=== PATIENT | female | born 1965 | race Native Hawaiian/Other Pacific Islander ===

== ENCOUNTER 2017-02-18 11:47 | Emergency (ER) | payer OTHER ==
[~2017-02-18] VITALS: Ht 167.6 cm; Wt 72.1 kg
[~2017-02-18 11:47] MED LIST: ACET-689 PO; CODEINE/APAP1 TA1 PO; DOXEPIN HCL10 MG PO; ESTR1TAB13 PO; FLUT0.05 NAS; IBUP-97 PO; PROZAC10 MG PO; TIZA4TAB5 PO; TRAMADOL HCL100 M1 PO; ZANTAC300 MG PO
[2017-02-18 12:59] LABS: PLATELET COUNT 280 K/uL (152-353)
[2017-02-18 13:10] LABS: POTASSIUM 4.4 mmol/L (3.6-5.2); SODIUM 138 mmol/L (136-145)
[2017-02-18 14:00] VITALS: TEMP 98.1
[2017-02-18 17:01] VITALS: BP 128/82
== END 2017-02-18 17:00 | disposition home or self-care (01) ==
LOC: ED 11:47
DX: K29.60 Other gastritis without bleeding (principal); B96.81 Helicobacter pylori [H. pylori] as the cause of diseases classified elsewhere; R16.0 Hepatomegaly, not elsewhere classified
CPT/HCPCS: 80053; 81000; 82150; 83690; 85027; 86318; 96374; 96375; 99284; J1885; J2405; Q9963

== ENCOUNTER 2018-02-06 12:14 | Observation (INO) | payer OTHER ==
[~2018-02-06] VITALS: Ht 167.6 cm; Wt 72.8 kg
[2018-02-06 12:30] VITALS: BP 164/62; TEMP 98.1
[2018-02-06 14:00] LABS: PLATELET COUNT 289 K/uL (152-353)
[2018-02-06 14:25] LABS: PARTIAL THROMBOPLASTIN TIME 28.9 SECONDS (24.5-33.6)
[2018-02-06 14:30] VITALS: BP 148/70
[2018-02-06 16:31] VITALS: BP 134/71
[2018-02-06 17:52] VITALS: BP 140/72; TEMP 97.7; Ht 167.6 cm; Wt 72.8 kg
[2018-02-06] MEDS ORDERED: CYCL10TA35 PO ×2 (17:59)
[2018-02-06 19:41] VITALS: BP 129/63; TEMP 97.9
[2018-02-07] VITALS (10 sets, daily range): BP systolic 111–126; BP diastolic 60–78; TEMP 97.6–98.2
[2018-02-07 05:46] LABS: PLATELET COUNT 273 K/uL (152-353)
[2018-02-07 05:58] LABS: POTASSIUM 3.8 mmol/L (3.6-5.2)
[2018-02-07] MEDS ORDERED: PANTOPRAZOLE 40MG TA PO ×2 (11:16)
[2018-02-07] MEDS ORDERED: CARAFATE1 GM PO ×2 (11:16)
== END 2018-02-07 16:10 | disposition home or self-care (01) ==
LOC: ED 12:14 → MED/SURG 16:45
PROVIDERS: ADMIT Specialist
PROC: 0DB68ZZ Excision of Stomach, Via Natural or Artificial Opening Endoscopic (ICD-10-PCS; principal; 2018-02-07)
DX: K29.01 Acute gastritis with bleeding (principal)
CPT/HCPCS: 36415; 80053; 81000; 82150; 82272; 83690; 85027; 85610; 85730; 96366; 96367; 96374; 96375; 99220; 99284; G0378; J2175; J2270; J2405; J2550; J3490

== ENCOUNTER 2018-02-08 11:30 | Outpatient (CLI) | payer OTHER ==
[~2018-02-08 11:30] MED LIST changes: +CARAFATE1 GM PO; +CYCL10TA35 PO; +PANTOPRAZOLE 40MG TA PO
== END 2018-02-08 22:50 | disposition home or self-care (01) ==
LOC: RAD 11:30
DX: M54.41 Lumbago with sciatica, right side (principal); M54.2 Cervicalgia; M54.42 Lumbago with sciatica, left side

== ENCOUNTER 2018-02-11 10:21 | Outpatient (CLI) | payer OTHER | END 2018-02-11 23:14 | disposition home or self-care (01) | LOC: CT 10:21 | DX: M54.2 Cervicalgia (principal); M47.812 Spondylosis without myelopathy or radiculopathy, cervical region ==